=== PATIENT | male | born 1950 | race African-American/Black ===

== ENCOUNTER 2016-10-04 23:18 | Emergency (ER) | payer MEDICARE, OTHER ==
[2016-10-04 23:24] VITALS: BP 124/81
[2016-10-05] MEDS ORDERED: BENZONATATE 100 MG CAPSULE PO ONE (00:03)
[2016-10-05] MEDS ORDERED: OXYMETAZOLINE HCL 0.05% NASAL SPRAY 15 ML BOTTLE ONE (01:06)
--- NOTE | 2016-10-05 02:08 | ER Document Report ---
ED General - General Chief Complaint: Chest Congestion Stated Complaint: Nasal drip Time Seen by Provider: 10/05/16 00:02 Notes: Patient is a 66-year-old male without past medical history presents with 3 days of nasal congestion and postnasal drip. He also notes that he has a sensation of vertigo. States the symptoms beginning progressively worsens onset tonight he thought he was choking when his nasal secretions were passing down his pharynx. He has not tried anything to improve his symptoms. He has not noted anything worsens the symptoms. He has not seen his primary care doctor regarding todays concerns. He denies any associated chest pain or pressure, shortness of breath, vomiting or fever. He is uncertain if hes had similar symptoms in the past. TRAVEL OUTSIDE OF THE [place] IN LAST 30 DAYS: No Past Medical History - General Information source: Patient - Social History Smoking Status: Never Smoker Chew tobacco use (# tins/day): No Frequency of alcohol use: None Drug Abuse: None Lives with: Spouse/Significant other Family History: Reviewed & Not Pertinent Patient has suicidal ideation: No Patient has homicidal ideation: No Renal/ Medical History: Denies: Hx Peritoneal Dialysis Review of Systems - Review of Systems Notes: Constitutional: Negative for fever. HENT: Negative for sore throat. Positive for nasal congestion Eyes: Negative for visual changes. Cardiovascular: Negative for chest pain. Respiratory: Negative for shortness of breath. Gastrointestinal: Negative for abdominal pain, vomiting or diarrhea. Genitourinary: Negative for dysuria. Musculoskeletal: Negative for back pain. Skin: Negative for rash. Neurological: Negative for headaches, weakness or numbness. 10 point ROS negative except as marked above and in HPI. Physical Exam - Vital signs Vitals: Temp Pulse Resp BP Pulse Ox 97.4 F 61 20 124/81 100 10/04/16 23:22 10/04/16 23:22 10/04/16 23:22 10/04/16 23:22 10/04/16 23:22 Interpretation: Normal Notes: PHYSICAL EXAMINATION: GENERAL: Well-appearing, well-nourished and in no acute distress. HEAD: Atraumatic, normocephalic. EYES: Pupils equal round and reactive to light, extraocular movements intact, sclera anicteric, conjunctiva are normal. ENT: nares patent, oropharynx clear without exudates. Moist mucous membranes. The right TM is obscured by a cottonball occlusion NECK: Normal range of motion, supple without lymphadenopathy LUNGS: Breath sounds clear to auscultation bilaterally and equal. No wheezes rales or rhonchi. HEART: Regular rate and rhythm without murmurs ABDOMEN: Soft, nontender, normoactive bowel sounds. No guarding, no rebound. No masses appreciated. EXTREMITIES: Normal range of motion, no pitting or edema. No cyanosis. NEUROLOGICAL: No focal neurological deficits. Moves all extremities spontaneously and on command. PSYCH: Normal mood, normal affect. SKIN: Warm, Dry, normal turgor, no rashes or lesions noted. Course - Re-evaluation Re-evalutation: 10/05/16 02:07 Patient presents with symptoms of vertigo due to a cottonball large and his right ear as well as complaints of postnasal drip. Patient states his symptoms resolved completely after extracted the cottonball from his middle right ear. He will be prescribed oxymetazoline for his postnasal drip. Although patient wrote chest tightness on his initial complaint form, he is very clear to me that he is not having any chest pressure whatsoever. He is complaining more about a feeling of phlegm being caught in his throat and choking him. This is what prompted a come to the emergency department. He is very clear he has no chest tightness, chest pressure, shortness of breath nausea or vomiting. His EKG is without ischemic changes and I do not believe a further evaluation for cardiac etiology of todays presentation is indicated as he gives a clear history and picture of postnasal drip secondary to nasal congestion. At this time will discharge with return precautions and follow-up recommendations. Verbal discharge instructions given a the bedside and opportunity for questions given. Medication warnings reviewed. Patient is in agreement with this plan and has verbalized understanding of return precautions and the need for primary care follow-up in the next 24-72 hours. - Vital Signs Vital signs: Temp Pulse Resp BP Pulse Ox 97.4 F 61 20 124/81 100 10/04/16 23:22 10/04/16 23:22 10/04/16 23:22 10/04/16 23:22 10/04/16 23:22 - EKG Interpretation by Me Additional EKG results interpreted by me: 10/05/16 02:07 Sinus bradycardia. Rate 55. First-degree AV block. No ST elevations or depressions. QTc is 391. Discharge - Discharge Clinical Impression: Vertigo, Postnasal drip Foreign body of right ear Qualifiers: Encounter type: initial encounter Qualified Code(s): T16.1XXA - Foreign body in right ear, initial encounter Condition: Good Disposition: HOME, SELF-CARE
[2016-10-05] MEDS ORDERED: OXYMETAZOLINE HCL 0.05% NASAL SPRAY 15 ML BOTTLE NASL ONE (03:45)
--- NOTE | 2016-10-05 13:05 | EKG REPORT ---
SEVERITY:- ABNORMAL ECG - SINUS RHYTHM FIRST DEGREE AV BLOCK : Confirmed by: Farooq Goddard 05-Oct-2016 13:04:18
== END 2016-10-05 01:12 | disposition home or self-care (01) ==
LOC: ER 23:18
DX: R09.82 Postnasal drip (principal); T16.1XXA Foreign body in right ear, initial encounter; X58.XXXA Exposure to other specified factors, initial encounter; R42 Dizziness and giddiness; R09.81 Nasal congestion; I44.0 Atrioventricular block, first degree
CPT/HCPCS: 93005; 93010; 99283

== ENCOUNTER 2017-07-14 07:12 | Emergency (ER) | payer MEDICARE, OTHER ==
--- NOTE | 2017-07-14 08:22 | RADIOLOGY REPORT (SQ) ---
EXAM DESCRIPTION: KNEE RIGHT 4 VIEWS COMPLETED DATE/TIME: 07/14/2017 8:07 am REASON FOR STUDY: right knee swelling COMPARISON: None. NUMBER OF VIEWS: Four views. TECHNIQUE: AP, lateral, and both oblique radiographic images acquired of the right knee. LIMITATIONS: None. FINDINGS: BONES: Old posttraumatic deformity of the patella with cerclage wire in place. There is n arrowing of the medial knee joint with minimal osteophytic change. JOINT: Small knee effusion. SOFT TISSUES: No soft tissue swelling. No radio-opaque foreign body. OTHER: Articular calcification compatible with chondrocalcinosis. IMPRESSION: Degenerative arthritis the right knee. Small knee effusion. . TECHNICAL DOCUMENTATION: JOB ID: [id number] [id number] 2010 [employer]- All Rights Reserved
--- NOTE | 2017-07-14 08:41 | ER Document Report ---
ED Extremity Problem, Lower - General Chief Complaint: Knee Pain Stated Complaint: RIGHT KNEE PAIN Time Seen by Provider: 07/14/17 07:43 Mode of Arrival: Medic Information source: Patient Notes: Patient is a 66-year-old male who presents to the ER today for swelling and pain to the right knee 4 days. Patient has a history of arthritis and surgery many years ago in this knee but denies any recent surgery or injury to the knee. Patient states that is very difficult to bear weight on because of pain and swelling. Patient has no history of gout. He denies any fevers or chills. TRAVEL OUTSIDE OF THE [place] IN LAST 30 DAYS: Yes - [place] 05/2017 - Related Data Allergies/Adverse Reactions: Penicillins Allergy (Verified 07/14/17 07:20) Past Medical History - General Information source: Patient - Social History Smoking Status: Unknown if Ever Smoked Family History: Reviewed & Not Pertinent Patient has suicidal ideation: No Patient has homicidal ideation: No Renal/ Medical History: Denies: Hx Peritoneal Dialysis Review of Systems - Review of Systems Constitutional: No symptoms reported EENT: No symptoms reported Cardiovascular: No symptoms reported Respiratory: No symptoms reported Gastrointestinal: No symptoms reported Genitourinary: No symptoms reported Male Genitourinary: No symptoms reported Musculoskeletal: See HPI Skin: See HPI Hematologic/Lymphatic: No symptoms reported Neurological/Psychological: No symptoms reported Physical Exam - Vital signs Vitals: Temp Pulse Resp BP Pulse Ox 98.4 F 82 16 115/80 97 07/14/17 07:29 07/14/17 07:29 07/14/17 07:29 07/14/17 07:29 07/14/17 07:29 - Notes Notes: PHYSICAL EXAMINATION: GENERAL: Well-appearing and in no acute distress. HEAD: Atraumatic, normocephalic. EYES: Pupils equal round and reactive to light, extraocular movements intact, sclera anicteric, conjunctiva are normal. NECK: Normal range of motion, supple without lymphadenopathy LUNGS: CTAB and equal. No wheezes rales or rhonchi. HEART: Regular rate and rhythm without murmurs ABDOMEN: Soft, no tenderness. No guarding, no rebound BACK: no vertebral tenderness, normal ROM GI/: no CVA tenderness EXTREMITIES: Limited range of motion of the right knee secondary to swelling and pain, no More's cyst noted, no pitting edema. No cyanosis. NEUROLOGICAL: Cranial nerves grossly intact. Normal sensory/motor exams. PSYCH: Normal mood, normal affect. SKIN: Warm, Dry, normal turgor, edema to the anterior right knee, tender to palpation Course - Re-evaluation Re-evalutation: 07/14/17 08:38 X-ray reveals degenerative arthritis and a small joint effusion. Patient will be placed in an [place] wrap for the swelling, not a knee immobilizer brace as there is no injury so I do not have a high suspicion for internal knee damage such as ligament , Meniscus or tendon ruptures. Patient will be provided something for pain. - Vital Signs Vital signs: Temp Pulse Resp BP Pulse Ox 98.4 F 82 16 115/80 97 07/14/17 07:29 07/14/17 07:29 07/14/17 07:29 07/14/17 07:29 07/14/17 07:29 Discharge - Discharge Clinical Impression: Effusion of knee joint right Arthritis of knee, degenerative Qualifiers: Osteoarthritis type: unspecified Laterality: right Qualified Code(s): M17.11 - Unilateral primary osteoarthritis, right knee Condition: Stable Disposition: HOME, SELF-CARE Instructions: Ice & Elevation ([facility]), Use of Crutches ([facility]) Additional Instructions: Return immediately for any new or worsening symptoms. Follow up with primary care provider, call tomorrow to make followup appointment. Prescriptions: Hydrocodone/Acetaminophen [[place] 5-325 mg Tablet] 1 tab PO Q4 PRN #15 tablet PRN Reason: Prednisone [Deltasone 20 mg Tablet] 3 tab PO DAILY 5 Days tablet
[2017-07-14 09:04] VITALS: BP 123/80
== END 2017-07-14 09:08 | disposition home or self-care (01) ==
LOC: ER 07:12
DX: M25.461 Effusion, right knee (principal); M17.11 Unilateral primary osteoarthritis, right knee; M25.561 Pain in right knee; M79.89 Other specified soft tissue disorders
CPT/HCPCS: 99284

== ENCOUNTER → 2020-02-11 | Outpatient (CLI) | payer MEDICARE, OTHER ==
[2020-02-11 10:20] LABS: HEMATOCRIT 46.3 % (37.9-51.0); HEMOGLOBIN 15.8 g/dL (13.5-17.0); MEAN CORPUSCULAR HEMOGLOBIN 30.7 pg (27.0-33.4); MEAN CORPUSCULAR HGB CONC 34.1 g/dL (32.0-36.0); MEAN CORPUSCULAR VOLUME 90 fl (80-97); PLATELET COUNT 231 10^3/uL (150-450); RED BLOOD COUNT 5.16 10^6/uL (4.35-5.55); RED CELL DISTRIBUTION WIDTH 13.5 % (11.5-14.0); WHITE BLOOD COUNT 4.9 10^3/uL (4.0-10.5)
[2020-02-11 11:03] LABS: ALBUMIN 4.3 g/dL (3.5-5.0); ALKALINE PHOSPHATASE 78 U/L (38-126); ANION GAP 6 (5-19); ASPARTATE AMINO TRANSFERASE 29 U/L (17-59); BILIRUBIN,DIRECT 0.2 mg/dL (0.0-0.4); BILIRUBIN,TOTAL 0.7 mg/dL (0.2-1.3); BLOOD UREA NITROGEN 12 mg/dL (7-20); CALCIUM 9.4 mg/dL (8.4-10.2); CARBON DIOXIDE 29 mmol/L (22-30); CHLORIDE 105 mmol/L (98-107); CHOLESTEROL 197.63 mg/dL (0-200); GLUCOSE 91 mg/dL (75-110); POTASSIUM 4.6 mmol/L (3.6-5.0); TOTAL PROTEIN 6.9 g/dL (6.3-8.2); TRIGLYCERIDES 120 mg/dL (<150)
[2020-02-11 11:14] LABS: DIRECT LDL 133 mg/dL (<100)
== END ==
LOC: OD 08:45
PROVIDERS: ATTEND Internal Medicine Cardiovascular Disease
DX: R00.2 Palpitations (principal); R07.9 Chest pain, unspecified; R42 Dizziness and giddiness
CPT/HCPCS: 36415; 80048; 80061; 80076; 83735; 84443; 85027